=== PATIENT | male | born 1950 | race Caucasian/White ===

== ENCOUNTER 2016-11-28 08:21 | Inpatient (IN) ==
[2016-11-22 12:29] LABS: Appearance,Urine HAZY; Bilirubin,Urine NEG (NEG); Color,Urine YELLOW; Glucose,Urine (UA) NEGATIVE (NEG); Leukocyte Esterase,Urine NEG /uL (NEG); Nitrate,Urine NEG (NEG); Protein,Urine NEG (NEG); Specific Gravity,Urine 1.015 (1.000-1.035); Urine Blood NEG mg/dL (<0.03); Urobilinogen,Urine NEG (NEG)
[2016-11-22 13:01] LABS: Basophils # (Auto) 0 K/mcL (0.0-0.3); Basophils % (Auto) 0.4 % (0.0-2.0); Eosinophils # (Auto) 0.1 K/mcL (0.0-0.7); Eosinophils % (Auto) 0.9 % (0.0-7.0); Granulocytes % (Auto) 68.4 % (38.0-78.0); Lymphocytes # (Auto) 1.9 K/mcL (1.5-4.8); Lymphocytes % (Auto) 20.6 % (15.5-49.0); Mean Corpuscular HGB Conc 35.1 g/dL (31.0-36.0); Mean Corpuscular Hemoglobin 31.6 pg (26.0-34.0); Monocytes # (Auto) 0.9 K/mcL (0.1-0.9); Monocytes % (Auto) 9.7 % (1.0-9.0); Platelet Count 314 K/mcL (140-440); RBC 4.16 M/mcL (4.50-5.90)
[2016-11-22 13:27] LABS: Blood Urea Nitrogen 17 mg/dl (8-23)
[~2016-11-28 08:21] MED LIST: CELECOXIB 200 MG CAPSULE PO SCH; KETOROLAC 30 MG, ROPIVACAINE HCL/PF 49.5 ML, EPINEPHrine 0.5 MG, 0.9 % SODIUM CHLORIDE ... IJ SCH; PREGABALIN 150 MG CAPSULE PO SCH; ceFAZolin 1 GM VIAL IV SCH; oxyCODONE 10 MG TAB.ER.12H PO SCH
[2016-11-28] MEDS ORDERED: PROPOFOL 200 MG/20 ML VIAL IV ONE (11:25)
[2016-11-28] MEDS ORDERED: MIDAZOLAM 5 MG/5 ML VIAL IV ONE (11:25)
[2016-11-28] MEDS ORDERED: DEXAMETHASONE 10 MG/ML VIAL IV ONE (11:25)
[2016-11-28] MEDS ORDERED: LIDOCAINE HCL/PF 100 MG/5 ML SYRINGE IV ONE (11:25)
[2016-11-28] MEDS ORDERED: TRANEXAMIC ACID 1,000 MG/10 ML VIAL IV ONE (11:25)
[2016-11-28] MEDS ORDERED: ROPIVACAINE HCL/PF 30 ML VIAL IJ ONE (11:25)
[2016-11-28] MEDS ORDERED: ONDANSETRON 4 MG/2 ML VIAL IV ONE (11:25)
[2016-11-28] MEDS ORDERED: GENTAMICIN SULFATE 800 MG/20 ML VIAL IR ONE (11:58)
[2016-11-28] MEDS ORDERED: HYDROmorphone 2 MG/ML SYRINGE IV PRN (12:35)
[2016-11-28] MEDS ORDERED: LACTATED RINGERS 250 ML IV PRN (12:35)
[2016-11-28] MEDS ORDERED: NALOXONE HCL 0.4 MG/ML VIAL IV PRN (12:35)
[2016-11-28] MEDS ORDERED: ONDANSETRON 4 MG/2 ML VIAL IV PRN ×2 (12:35→12:58)
[2016-11-28] MEDS ORDERED: MEPERIDINE 25 MG/ML SYRINGE IV PRN (12:35)
[2016-11-28] MEDS ORDERED: diphenhydrAMINE 50 MG/ML VIAL IV PRN (12:35)
[2016-11-28] MEDS ORDERED: BENZOCAINE/MENTHOL 1 LOZENGE PO PRN (12:35)
[2016-11-28] MEDS ORDERED: FLUMAZENIL 0.1 MG/ML ML IV PRN (12:35)
[2016-11-28] MEDS ORDERED: METHOCARBAMOL 1,000 MG/10 ML VIAL IV PRN (12:35)
[2016-11-28] MEDS ORDERED: PROMETHAZINE 25 MG/ML VIAL IV PRN ×2 (12:35→12:58)
[2016-11-28] MEDS ORDERED: IPRATROPIUM/ALBUTEROL 3 ML AMPUL.NEB NEB PRN (12:35)
[2016-11-28] MEDS ORDERED: fentaNYL 100 MCG/2 ML VIAL IV PRN (12:35)
[2016-11-28] MEDS ORDERED: LACTATED RINGERS 1,000 ML IV SCH (12:45)
[2016-11-28] MEDS ORDERED: ONDANSETRON ODT 4 MG TABLET SL PRN (12:58)
[2016-11-28] MEDS ORDERED: POLYETHYLENE GLYCOL 3350 17 GM PACKET PO PRN (12:58)
[2016-11-28] MEDS ORDERED: MAGNESIUM HYDROXIDE 30 ML ORAL.SUSP PO PRN (12:58)
[2016-11-28] MEDS ORDERED: TRANEXAMIC ACID 1,000 MG/10 ML VIAL IV SCH (12:58)
[2016-11-28] MEDS ORDERED: FLEETS ADULT ENEMA PR PRN (12:58)
[2016-11-28] MEDS ORDERED: BISACODYL 10 MG SUPP.RECT PR PRN (12:58)
--- NOTE | 2016-11-28 12:58 | Brief Operative Note ---
Date of procedure: 11/28/16 Pre-op diagnosis: left knee osteoarthritis Post-op diagnosis: same Procedure: left total knee arthroplasty Grafts/Implants: Yes Anesthesia: spinal Complications: none Surgeon: Hemant Arrieta Adobe Layer: Fritz Lewis Estimated blood loss (cc): 150 Tourniquet Time (Minutes): 60 Specimens Removed/Pathology: none sent Condition: stable Disposition: PACU
--- NOTE | 2016-11-28 13:18 | Operative Note ---
DATE OF OPERATION: 11/28/2016 PREOPERATIVE DIAGNOSIS: Degenerative joint disease, left knee. POSTOPERATIVE DIAGNOSIS: Degenerative joint disease, left knee. PROCEDURE: Left total knee arthroplasty. SURGEON: Jorden Arrieta M.D. DIRECTOR OF PROCUREMENT SURGEON: Fritz Lewis PA-C ANESTHESIA: Spinal with LMA assist. ESTIMATED BLOOD LOSS: 150 mL COMPLICATIONS: None noted. SPECIMENS REMOVED: None. DRAINS: None. TOURNIQUET TIME: 60 minutes at 300 mmHg. IMPLANTS: Depuy CMW2 bone cement 20 grams x4, Depuy Attune tibial base fixed bearing size 8 cemented, Depuy Attune tibial insert fixed bearing posterior stabilized size 8, 8 mm AOX, Depuy Attune femoral posterior stabilized size 8 left cemented, Depuy Attune patella medialized dome 41 mm cemented AOX. INDICATIONS: The patient has had a long-standing history of worsening pain in the knee that has failed conservative treatment. Radiographs have confirmed advanced degenerative joint disease. After a long discussion about treatment options, the patient elected to proceed with a knee arthroplasty. The risks and benefits were discussed with the patient in detail including, but not limited to, the risks of anesthesia, problems with the heart or lungs related to anesthesia, infection, compromise or injury to the nerves and blood vessels, deep venous thrombosis, pulmonary embolism, pneumonia, continued pain after surgery, worsening pain or symptoms after surgery, swelling, loss of motion, instability, leg length discrepancy, and need for repeat surgery. DESCRIPTION OF PROCEDURE: The patient was seen in the pre-anesthesia waiting room where all questions were answered and the correct side and site were identified and marked. The patient was transferred to the operating room and administered the anesthetic and given pre-operative antibiotics. A time-out was then called. The extremity was prepped and draped, exsanguinated, and the tourniquet was inflated to 300 mmHg. A midline skin incision was then made with a standard medial parapatellar arthrotomy. Debridement of the menisci, ACL, and PCL was performed followed by balancing releases in the medial lateral plane. We then established intramedullary access to both the femur and tibia in a standard fashion. The femoral guide jon was initially placed with the distal femoral guide, pinned into place, and the distal femoral cut was performed and checked with a flat plate. We then turned our attention to the tibia. The intramedullary guide was placed with the proximal tibial cutting block. The block was appropriately positioned off the affected side, varus and valgus was checked with the extra-medullary guide, and the block was pinned into place. The proximal tibial cut was performed and the tibia was prepared for the tibial implant with appropriate rotation. The tibia, femur, and posterior compartment were debrided of osteophytes, loose bodies, and meniscal fragments We then used the gap balancing technique to balance extension with the first two cuts and good balancing was obtained with a 10 millimeter gap block. We turned our attention back to the femur and used the referencing block and implant to size appropriately. Using the gap balancing technique for the flexion space we set our rotation of the femur off the tibial cut. Anesthesia gave the patient 1 gram of Tranexamic Acid via an intravenous route. We placed the 4 in 1 cutting block and made anterior, posterior, and chamfer cuts. Box plasty cuts were then made in a standard fashion for the posterior stabilized prosthesis. We then completed osteophyte release and posterior capsule release from the posterior compartment. Trials were placed and we chose the polyethylene insert thickness that provided the best stability in all planes. With the trials in place, we did a measured resection for a resurfacing patella. We sized the patella and placed the patella trial and performed a lateral facetectomy with the saw and rongeur. Good tracking was obtained. We removed all trials, irrigated and dried all cut surfaces. We cemented the components into place including tibia, femur and patella. We placed a trial liner and held the knee in full extension with the patella compressed while the cement cured. We then removed all excess cement and placed the final polyethylene tibiofemoral component. Irrigation with 3 liters of antibiotic saline was then performed using jet-lavage. We let the tourniquet down and coagulated bleeding vessels. We injected a 100 cubic centimeter volume including Ropivacaine 49.25 cubic centimeters at 5 milligrams per cubic centimeter, Ketorolac 30 milligrams, and Epinephrine 0.5 milligrams into 100 cubic centimeters volume of normal saline. We placed a deep drain and closed the retinaculum with looped #0 Maxon. We closed the subcutaneous tissue and skin in layers out to shweta in the skin. A sterile pressure dressing was applied. All needle and sponge counts were correct. The patient was transferred to the recovery room in stable condition. MAGEN:smith Job ID: [id number] Doc ID: [id number] Jorden Arrieta MD
--- NOTE | 2016-11-28 14:49 | XRay Report ---
CLINICAL INFORMATION: Postop total knee prostheses COMPARISON: None. FINDINGS: Total knee prostheses is anatomically aligned. No osseous abnormalities. Periarticular soft tissue swelling seen as expected. IMPRESSION: Negative Interpreted and Authenticated by: Hemant Hall 11/28/16
[2016-11-28] MEDS: 0.9 % SODIUM CHLORIDE 1,000 ML IV SCH ×2 (15:12→21:17)
[2016-11-28] MEDS: 0.9 % SODIUM CHLORIDE 10 ML SYRINGE IV SCH ×2 (15:13→21:17)
[2016-11-28] MEDS: HYDROcodone/APAP 10/325MG TABLET PO PRN ×2 (17:58→22:38)
[2016-11-28] MEDS: KETOROLAC 15 MG/ML VIAL IV SCH (18:00)
[2016-11-28] MEDS: ceFAZolin 1 GM VIAL IV SCH (19:20)
[2016-11-28] MEDS: DOCUSATE SODIUM 100 MG CAPSULE PO SCH (20:45)
[2016-11-28] MEDS: SENNOSIDES 1 TABLET PO SCH (20:45)
[2016-11-28] MEDS: ASPIRIN 325 MG ENTERIC COATED TABLET PO SCH (20:45)
[2016-11-28] MEDS: BENZOCAINE/MENTHOL 1 LOZENGE PO PRN (20:54)
[2016-11-29] MEDS: KETOROLAC 15 MG/ML VIAL IV SCH ×4 (00:38→18:08)
[2016-11-29] MEDS: ceFAZolin 1 GM VIAL IV SCH (03:47)
[2016-11-29] MEDS: HYDROcodone/APAP 10/325MG TABLET PO PRN ×5 (03:47→20:59)
[2016-11-29] MEDS: BENZOCAINE/MENTHOL 1 LOZENGE PO PRN (03:48)
[2016-11-29] MEDS: 0.9 % SODIUM CHLORIDE 1,000 ML IV SCH ×4 (04:43→21:00)
[2016-11-29] MEDS: 0.9 % SODIUM CHLORIDE 10 ML SYRINGE IV SCH ×3 (04:44→20:59)
[2016-11-29] MEDS: METHOCARBAMOL 750 MG TABLET PO PRN ×2 (05:25→15:27)
--- NOTE | 2016-11-29 07:27 | Orthopedic Progress Note ---
Subjective Patient information: Note initiated : 11/29/16 at 7:25 am Service Date, if different from initiated Date: [] Patient: Fritz Dominguez 66 y/o M admitted on 11/28/16 for Left Total Knee Arthroplasty. Chief Complaint: [] Principal diagnosis: left total knee Interval history: Doing well this morning without complaint. Denies calf pain, chest pain, SOB. Vitals stable. Anticipate discharge tomorrow. Objective Vital signs: Vital Signs Temp Pulse Pulse Resp BP BP Pulse Ox 11/29/16 07:06 98.1 F 16 152/80 94 11/29/16 03:51 97.9 F 77 18 137/77 93 11/28/16 22:54 97.9 F 77 16 151/74 94 11/28/16 20:01 92 11/28/16 20:00 98.4 F 82 16 142/74 92 11/28/16 16:45 83 140/79 93 11/28/16 15:45 72 137/72 944 H 11/28/16 15:15 79 150/79 94 11/28/16 14:45 70 148/74 95 11/28/16 14:30 64 124/70 91 11/28/16 14:15 66 14 117/73 95 11/28/16 14:00 98.1 F 66 12 125/71 94 11/28/16 13:50 98.2 F 66 11 L 128/63 11/28/16 13:40 98.2 F 70 12 128/63 96 11/28/16 13:25 66 11 L 106/59 99 11/28/16 13:10 97.9 F 71 12 105/61 97 11/28/16 09:15 96.8 F L 18 154/87 93 Intake and Output 11/28/16 11/29/16 11/29/16 21:59 05:59 13:59 Intake Total 2019 1900 / 1900 Output Total 800 / 800 550 / 550 450 / 450 Balance 1220 / 1220 1350 / 1350 -450 / -450 Intake: IV 1000 / 1000 Sodium Chloride 0.9% 1, 1000 / 1000 000 ml @ 125 mls/hr IV . Q8H [facility] Rx#:[id number] Oral 2019 900 / 900 Output: Urine Catheter Amount 800 / 800 Void Amount 550 / 550 450 / 450 Other: Meal Dinner Percent of Meal Consumed 100% Weight 224 lb Intake & Output: Intake & Output 11/28/16 11/29/16 11/29/16 21:59 05:59 13:59 Intake Total 2019 1900 / 1900 Output Total 800 / 800 550 / 550 450 / 450 Balance 1220 / 1220 1350 / 1350 -450 / -450 Weight 224 lb Intake: IV 1000 / 1000 Sodium Chloride 0.9% 1, 1000 / 1000 000 ml @ 125 mls/hr IV . Q8H [facility] Rx#:[id number] Oral 2019 900 / 900 Output: Urine Catheter Amount 800 / 800 Void Amount 550 / 550 450 / 450 Other: Meal Dinner Percent of Meal Consumed 100% Incision: Yes clean and dry Incision clean and dry: Yes Dressing: Yes clean, Yes dry, Yes intact Weight bearing status: as tolerated Neurological exam IM: Yes alert, Yes oriented X3, Yes motor sensory intact, Yes neurovascular intact Extremities exam IM: No calf tenderness, No Rohit's sign - Periperhal Pulses Peripheral pulses: 2+: dorsalis pedis (L), dorsalis pedis (R), posterior tibialis (L), posterior tibialis (R) - Labs CBC & BMP: 11/29/16 05:30 11/22/16 10:34 Labs: Orthopedic Labs 11/22/16 10:34 PT 13.5 INR 1.0 11/29/16 11/22/16 05:30 10:35 Hgb 11.1 L 13.2 L Hct 33.9 L 37.5 L Assessment and Plan (1) S/P total knee arthroplasty PO day 1 s/p left tka wbat pain control dvt proph with aspirin PT, mobilize Status: Acute Qualifiers: Laterality: left Qualified Code(s): Z96.652 - Presence of left artificial knee joint
[2016-11-29] MEDS: DOCUSATE SODIUM 100 MG CAPSULE PO SCH ×2 (08:37→20:59)
[2016-11-29] MEDS: ASPIRIN 325 MG ENTERIC COATED TABLET PO SCH ×2 (08:37→20:59)
[2016-11-29] MEDS: HYDROmorphone 2 MG/ML SYRINGE IV PRN ×2 (18:17→23:16)
[2016-11-29] MEDS: SENNOSIDES 1 TABLET PO SCH (20:59)
[2016-11-30] MEDS: KETOROLAC 15 MG/ML VIAL IV SCH ×2 (00:36→06:51)
[2016-11-30] MEDS: HYDROcodone/APAP 10/325MG TABLET PO PRN ×3 (00:39→08:50)
[2016-11-30] MEDS: 0.9 % SODIUM CHLORIDE 1,000 ML IV SCH (05:10)
--- NOTE | 2016-11-30 06:50 | Discharge Summary ---
Ortho Discharge - TKA - Patient Instructions Diet: Regular Diet Activity: activity as tolerated, weight bearing as tolerated Total Knee Protocol: For Total Knee: Start ROM STORMY with stationary bike or rocking chair. Work on gaining full extension of knee. Posterior dislocation precautions provided. Hip abductor strengthening and gait training instructions provided. Apply Cryocuff as instructed. Dressing Care: May shower in 2 days - Problem Maintenance (1) S/P total knee arthroplasty Status: Acute Qualifiers: Laterality: left Qualified Code(s): Z96.652 - Presence of left artificial knee joint - Follow Up Plan Disposition: Home, Self-Care Prognosis: Good Rehab Potential: Good I certify that the patient requires SNF services: No Overall status at discharge: patient is progressing back to baseline
--- NOTE | 2016-11-30 06:50 | Orthopedic Progress Note ---
Subjective Patient information: Note initiated : 11/30/16 at 6:48 am Service Date, if different from initiated Date: [] Patient: Fritz Dominguez 66 y/o M admitted on 11/28/16 for Left Total Knee Arthroplasty. Chief Complaint: [] Principal diagnosis: left total knee Objective Vital signs: Vital Signs Temp Pulse Pulse Resp BP Pulse Ox 11/30/16 04:00 98.2 F 83 12 167/81 95 11/29/16 23:22 98.1 F 89 14 166/82 95 11/29/16 20:00 97.2 F L 80 12 134/79 94 11/29/16 18:56 18 97 11/29/16 16:33 98.3 F 20 158/90 97 11/29/16 11:52 98.7 F 16 167/85 94 11/29/16 07:54 85 93 11/29/16 07:06 98.1 F 16 152/80 94 Intake and Output 11/29/16 11/30/16 11/30/16 21:59 05:59 13:59 Intake Total 1100 / 1100 340 / 340 Output Total 1475 / 1475 1675 / 1675 Balance -375 / -375 -1335 / -1335 Intake: Oral 1100 / 1100 340 / 340 Output: Void Amount 1475 / 1475 1675 / 1675 Other: Meal Dinner Percent of Meal Consumed 100% Feeding Ability Independent # Voids 2 Weight 224 lb Intake & Output: Intake & Output 11/29/16 11/30/16 11/30/16 21:59 05:59 13:59 Intake Total 1100 / 1100 340 / 340 Output Total 1475 / 1475 1675 / 1675 Balance -375 / -375 -1335 / -1335 Weight 224 lb Intake: Oral 1100 / 1100 340 / 340 Output: Void Amount 1475 / 1475 1675 / 1675 Other: Meal Dinner Percent of Meal Consumed 100% Feeding Ability Independent # Voids 2 Incision: Yes healing, Yes clean and dry Incision clean and dry: Yes Dressing: Yes clean, Yes dry, Yes intact Weight bearing status: full Neurological exam IM: Yes alert, Yes normal gait, Yes oriented X3, Yes motor sensory intact, Yes neurovascular intact Extremities exam IM: Yes neurovascular intact - Labs CBC & BMP: 11/30/16 04:55 11/22/16 10:34 Labs: Orthopedic Labs 11/22/16 10:34 PT 13.5 INR 1.0 11/30/16 11/29/16 11/22/16 04:55 05:30 10:35 Hgb 10.9 L 11.1 L 13.2 L Hct 33.1 L 33.9 L 37.5 L Assessment and Plan (1) S/P total knee arthroplasty pod 2 s/p tka doing well pain control dvt prophylaxis d/c planning Status: Acute Qualifiers: Laterality: left Qualified Code(s): Z96.652 - Presence of left artificial knee joint
[2016-11-30] MEDS: 0.9 % SODIUM CHLORIDE 10 ML SYRINGE IV SCH (06:51)
[2016-11-30] MEDS: DOCUSATE SODIUM 100 MG CAPSULE PO SCH (09:14)
[2016-11-30] MEDS: ASPIRIN 325 MG ENTERIC COATED TABLET PO SCH (09:14)
[2016-11-30] MEDS: METHOCARBAMOL 750 MG TABLET PO PRN (10:03)
== END 2016-11-30 11:26 | disposition home or self-care (01) | DRG 470 ==
LOC: MEDSUR 08:21
PROVIDERS: ADMIT Orthopaedic Surgery Sports Medicine; ATTEND Orthopaedic Surgery Sports Medicine